=== PATIENT | female | born 1975 | race Caucasian/White ===

== ENCOUNTER → 2018-08-30 15:41 | Outpatient (CLI) | payer MEDICAID, SELFPAY | PROVIDERS: Referring Provider Otolaryngology; Visit Provider Otolaryngology | DX: J32.9 Chronic sinusitis, unspecified (principal) | CPT/HCPCS: 87070; 87077; 87186; 87205 ==

== ENCOUNTER → 2018-09-14 16:00 | Outpatient (CLI) | payer MEDICAID, SELFPAY | PROVIDERS: Referring Provider Otolaryngology; Visit Provider Otolaryngology | DX: J32.9 Chronic sinusitis, unspecified (principal) | CPT/HCPCS: 87070; 87205 ==

== ENCOUNTER → 2018-09-28 15:38 | Outpatient (CLI) | payer MEDICAID, SELFPAY | PROVIDERS: Referring Provider Otolaryngology; Visit Provider Otolaryngology | DX: J32.9 Chronic sinusitis, unspecified (principal) | CPT/HCPCS: 87070; 87205 ==

== ENCOUNTER → 2019-02-16 | Outpatient (CLI) | payer MEDICAID, SELFPAY ==
--- NOTE | 2019-02-16 09:46 | RAD_ITS ---
STUDY: X-RAY CHEST REASON FOR EXAM: Female, 43 years old. Preoperative evaluation. Diagnostic laryngoscopy. TECHNIQUE: PA and lateral views of the chest. COMPARISON: None. FINDINGS: Calcified granulomas more prominent in the left lower lobe. No focal infiltrate is seen. There is no demonstrated pleural abnormality. Normal size heart. Normal mediastinum and shazia. Normal visualized pulmonary arteries. Normal visualized aortic arch and descending thoracic aorta. Normal visualized thoracic spine. Normal visualized ribs, clavicles, and shoulders. There is no demonstrated abnormality of the visualized soft tissue structures of the upper abdomen. RAD/Chest PA and Lateral IMPRESSION: Scattered calcified granulomas. Electronically Signed: Fahad Medeiros, at 10:32 EDT , Service support ,
[2019-02-16 12:55] LABS: Anion Gap 1 (5-15); BUN 4 mg/dL (7-18); Calcium,Total 8.9 mg/dL (8.5-10.1); Chloride 109 mmol/L (98-107); EST Glomerular Filtration Rate 83 mL/min (>60); Est Glom Filt Rate - Afr Amer 101 mL/min (>60); Glucose 80 mg/dL (74-106); Potassium 3.8 mmol/L (3.5-5.1); Sodium Level 140 mmol/L (136-145)
== END | disposition home or self-care (01) ==
LOC: RAD 09:43
PROVIDERS: Referring Provider Otolaryngology; Visit Provider Otolaryngology
DX: Z01.818 Encounter for other preprocedural examination (principal)
CPT/HCPCS: 36415; 71046; 80048

== ENCOUNTER 2019-02-20 12:40 | Day surgery (SDC) | payer MEDICAID, SELFPAY ==
--- NOTE | 2019-02-20 12:49 | EKG12_ITS ---
Test Reason : PRE-OP Blood Pressure : / mmHG Vent. Rate : 091 BPM Atrial Rate : 091 BPM P-R Int : 136 ms QRS Dur : 076 ms QT Int : 354 ms P-R-T Axes : 062 041 067 degrees QTc Int : 435 ms Normal sinus rhythm Normal ECG No previous ECGs available Confirmed by BEE RUCKER, TAHIRA ([id number]), rewrite editor ZOE MURRAY ([id number]) on 02/26/2019 2:53:38 PM Referred By: Wisam Patel Confirmed By:TAHIRA GAMBOA MD
[2019-02-20 13:04] VITALS: BP 127/80; PULSE 99; RESP 16; TEMP 37.2; O2SAT 95; BMI 33.5
[2019-02-20 13:49] LABS: Hematocrit 38.9 % (37-47); Hemoglobin 13.2 g/dl (12.0-15.0); Mean Corp Hgb Conc 33.9 g/gl (32-36); Mean Corpuscular Hgb 33.8 pg (27.0-32.0); Mean Corpuscular Volume 99.7 fL (81-99); Platelet Count 300 K/mm3 (150-450); RBC Distribution Width SD 50.8 fl (35.1-43.9); Scan Indicated on CBC? Y/N NO; White Blood Count 6.4 K/mm3 (4.4-11.0)
--- NOTE | 2019-02-20 14:00 | MASS_PTH ---
PATIENT: SOTO BRYANT [place]: [facility] [place][id number] AGE/SX: 43/F ROOM: RE02/20/[address]: Dr. Ja Patel MD : 1975 BED: DIS: 02/20/2019 SPEC #: [id number] RECD: 02/20/19 15:08 STATUS: OMID JESSE #: [id number] YOGESH: 02/20/19 14:[address]: Ja Patel DEPT: SURGICAL PATHOLOGY RECD BY: Ric Hogan ENTERED: 02/21/19 09:05 SP TYPE: Mass OTHR DR: Out of Town Doctor Tissues: Vocal cord, NOS Procedures: PAS Fungus (control) Special Stain Group I Surgery Specimen Level III HEADER OPERATION: Diagnostic laryngoscopy with biopsy PRE-OP DIAGNOSIS: Hoarseness TISSUE SUBMITTED: Right vocal cord mass MICROSCOPIC DIAGNOSIS Right vocal cord mass, biopsy: Polypoid fragments of squamous mucosa with hyperkeratosis and parakeratosis, ulceration and associated granulation, acute and chronic inflammation and reactive epithelial atypia. Occasional fungal organisms consistent with Kasandra species. See comment. VERONICA:víctor 02/22/19 COMMENT PASF stain with matched control supports the above diagnosis. The fragments of squamous mucosa have a verrucoid appearance. Clinical correlation is suggested. MICROSCOPIC DESCRIPTION Slides are reviewed. GROSS DESCRIPTION Received in fixative is one container labeled with the patient's name and designated right vocal cord mass. The specimen consists of three irregular fragments of alaniz soft tissue that in aggregate measure 0.3 x 0.2 x 0.1 cm. The specimen is totally submitted in one cassette. / CE:víctor 02/21/19 TC:2 CPT: 91250, 68715
--- NOTE | 2019-02-20 14:12 | PCM.OPRPT ---
Problem List (1) Vocal cord mass Status: Chronic Report of Operation Date of Procedure: 02/20/19 Pre-Operative Diagnosis: right vocal cord mass Post-Operative Diagnosis: right vocal cord mass Surgery/Procedure Performed:: diagnostic laryngoscopy with biopsy and use of operative telescope Type of Anesthesia:: General Description of Procedure: on the day of the procedure, after appropriate informed consent was obtained, the patient was brought to the operating room and placed in supine position on the operating table. she was placed under general endotracheal anesthesia by the anesthesiologist using the glide scope. the endotracheal tube was secured, the eyes were taped. the table was rotated 90 degrees toward the surgeon. a tooth guard was placed. a brigido laryngoscope was inserted into the oral cavity with care not to damage the lips, teeth or gums. it was suspended to the rees stand. the zero degree endoscope was used to evaluate the larynx. there was a right mid-cord granular nodule concerning for squamous cell carcinoma. this was biopsied with a cupped biting forceps. it did not involve the underside of the cord or the anterior commissure. the left cord had some slight mucosal changes but no discrete masses. the remainder of the larynx was unremarkable. biopsy-site bleeding was stopped with afrin-soaked pledgets. hemostasis was observed. the table was rotated 90 degrees toward the anesthesiologist and the patient was subsequently extubated uneventfully. she was transferred to the pacu in stable condition.
--- NOTE | 2019-02-20 14:20 | DCINST_ITS ---
- Discharge Diagnoses Current Active Problems: Current Active and Chronic Problems Vocal cord mass (Chronic) You will use the following diet at home:: No restrictions Your food should be the consistency of: Regular Allergies/Adverse Reactions: Allergies No Known Allergies Allergy (Verified 02/16/19 12:32) Medications to take at Discharge Albuterol Aerosols [Ventolin Aerosols] 2.5 mg INHALATION Q2H PRN PRN 02/16/19 Albuterol Aerosols [Ventolin Aerosols] 2.5 mg INHALATION Q4HWA.RT 02/16/19 Clonazepam 1 mg PO TID 02/16/19 Dextroamphetamine/Amphetamine [Adderall Xr 25 mg Capsule] 25 mg PO DAILY 02/16/19 Doxepin HCl 150 mg PO QHS 02/16/19 Gabapentin [Neurontin] 600 mg PO 4X/DAY 02/16/19 Ropinirole HCl [Requip] 4 mg PO QHS 02/16/19 Sertraline HCl [Zoloft] 100 mg PO DAILY 02/16/19 Tiotropium [place] [Spiriva 18 MCG] 1 puff INHALATION DAILY 02/16/19 cycloBENZAPRine HCl [Flexeril] 10 mg PO BID 02/16/19 Acetaminophen/Codeine #3 [Tylenol#3] 1 tab PO Q6H PRN PRN #10 tab 02/20/19 The following prescriptions were given: Acetaminophen/Codeine #3 [Tylenol#3] 1 tab PO Q6H PRN PRN #10 tab PRN Reason: Pain Primary Care Physician: [facility] Doctor,Out of [Primary Care Provider] - Test Results: Test results from this visit will be discussed in further detail at your follow- up appointment, if applicable. Please Follow Up With: Wisam Patel MD When: 1 week
[2019-02-20 14:25] VITALS: BP 127/80; BP 135/72; PULSE 102; RESP 18; TEMP 36.7; O2SAT 92
[2019-02-20 14:30] VITALS: BP 127/80; BP 129/80; PULSE 98; RESP 16; O2SAT 92
[2019-02-20 14:45] VITALS: BP 124/83; BP 127/80; PULSE 91; RESP 18; O2SAT 93
[2019-02-20 14:56] VITALS: BP 126/82; BP 127/80; PULSE 92; RESP 18; TEMP 36.4; O2SAT 95
[2019-02-20 15:23] VITALS: BP 127/80; BP 133/89; PULSE 88; RESP 18; TEMP 36.6; O2SAT 95
== END 2019-02-20 15:28 | disposition home or self-care (01) ==
LOC: SDC 12:41 → AC 12:42
PROVIDERS: Anesthesiology; Referring Provider Otolaryngology; Visit Provider Otolaryngology
PROC: 0CJS8ZZ Inspection of Larynx, Via Natural or Artificial Opening Endoscopic (ICD-10-PCS; CPT 31575; principal; 2019-02-20 13:45)
DX: R49.0 Dysphonia (principal); J38.3 Other diseases of vocal cords; F43.10 Post-traumatic stress disorder, unspecified; F41.9 Anxiety disorder, unspecified; F60.3 Borderline personality disorder; Z79.899 Other long term (current) drug therapy; G47.30 Sleep apnea, unspecified; M79.7 Fibromyalgia; G25.81 Restless legs syndrome
CPT/HCPCS: 00320; 31536; 85027; 88304; 88305; 88312; 93005; J7120; J2405

== ENCOUNTER 2020-05-20 07:12 | Day surgery (SDC) | payer MEDICAID, SELFPAY ==
[2020-05-20] VITALS (7 sets, daily range): BP systolic 118–141; BP diastolic 72–92; PULSE 74–358; RESP 16; TEMP 36.2–37; O2SAT 92–100; BMI 32.2
--- NOTE | 2020-05-20 | LES_PTH ---
PATIENT: SOTO BRYANT LOC: [facility] – [place] U#:[id number] AGE/SX: 44/F ROOM: RE05/20/[address]: Dr. aJ aPtel MD : 1975 BED: DIS: 05/20/2020 SPEC #: [id number] RECD: 05/20/20 09:02 STATUS: OMID JESSE #: [id number] YOGESH: 05/20/20 00:[address]: Ja Patel DEPT: SURGICAL PATHOLOGY RECD BY: Felisa Muller Tissues: A - Skin of nose, NOS B - Skin of nose, NOS C - Skin of nose, NOS D - Skin of nose, NOS E - Skin of nose, NOS F - Skin of nose, NOS Procedures: Frozen Section (charge) Surgery Specimen Level IV HEADER OPERATION: Excision nasal lesion, frozen section PRE-OP DIAGNOSIS: Right nasal mass TISSUE SUBMITTED: A - Right nasal lesion, B - Right nasal lesion, 9-12 o'clock margin, C - Right nasal lesion, 6-9 o'clock margin, D - Right nasal lesion, 3-6 o'clock margin, E - Right nasal lesion, 12-3 o'clock margin, F - Right nasal lesion, deep margin FROZEN SECTION DIAGNOSIS A. Right nasal lesion, biopsy: Atypical epithelial lesion. Differential diagnosis includes basal cell carcinoma vs trichoepithelioma or trichofolliculoma. B. 9 to 12 o'clock margin, biopsy: Negative for carcinoma. C. 6 to 9 o'clock margin, biopsy: Negative for carcinoma. D. 3 to 6 o'clock margin, biopsy: Negative for carcinoma. E. 12 to 3 o'clock margin, biopsy: Negative for carcinoma. F. Deep margin, biopsy: Negative for carcinoma. ARYAN:víctor 05/20/20 MICROSCOPIC DIAGNOSIS A. Right nasal lesion, biopsy: Basal cell carcinoma, focally present at the deep margin of the specimen. B. Right nasal lesion, 9 to 12 o'clock margin, biopsy: Negative for carcinoma. Solar elastosis. C. Right nasal lesion, 6 to 9 o'clock margin, biopsy: Negative for carcinoma. Dermal chronic inflammation. D. Right nasal lesion, 3 to 6 o'clock margin, biopsy: Negative for carcinoma. Dermal chronic inflammation. Solar elastosis. E. Right nasal lesion, 12 to 3 o'clock margin, biopsy: Negative for carcinoma. Dermal chronic inflammation. Solar elastosis. F. Right nasal lesion, deep margin, biopsy: Negative for carcinoma. Mild chronic inflammation. ARYAN:víctor 05/21/20 COMMENT Case has been reviewed in consultation with Dr. Ellsworth who concurs with the above diagnosis. IDC:AM MICROSCOPIC DESCRIPTION Slides are reviewed. GROSS DESCRIPTION A - Received fresh for frozen section diagnosis labeled with the patient's name is a specimen designated right nasal lesion. The specimen consists of a round piece of alaniz-white skin measuring 1 x 1 x 0.3 cm. The specimen is inked, serially sectioned and submitted entirely in one cassette for frozen section diagnosis. B - Received fresh for frozen section diagnosis labeled with the patient's name is a specimen designated 9 to 12 o'clock margin. The specimen consists of two fragments of alaniz-white skin measuring in aggregate 0.3 x 0.1 x 0.1 cm. The entire specimen is submitted for frozen section diagnosis in one cassette. C - Received fresh for frozen section diagnosis labeled with the patient's name is a specimen designated 6 to 9 o'clock margin. The specimen consists of a piece of alaniz-white skin measuring 0.3 x 0.1 x 0.1 cm. The entire specimen is submitted for frozen section diagnosis in one cassette. D - Received fresh for frozen section diagnosis labeled with the patient's name is a specimen designated 3 to 6 o'clock margin. The specimen consists of a piece of alaniz-white skin measuring 0.2 x 0.1 x 0.1 cm. The entire specimen is submitted for frozen section diagnosis in one cassette. E - Received fresh for frozen section diagnosis labeled with the patient's name is a specimen designated 12 to 3 o'clock margin. The specimen consists of a piece of alaniz-white skin measuring 0.5 x 0.2 x 0.1 cm. The entire specimen is submitted for frozen section diagnosis in one cassette. F - Received fresh for frozen section diagnosis labeled with the patient's name is a specimen designated deep margin. The specimen consists of a piece of alaniz soft tissue measuring 0.3 x 0.1 x 0.1 cm. The entire specimen is submitted for frozen section diagnosis in one cassette. / ARYAN:víctor 05/20/20 TC: 0 CPT: 48374 x6, 08040 x6
--- NOTE | 2020-05-20 08:32 | DCINST_ITS ---
You will use the following diet at home:: No restrictions Discharge Activity: May not drive while taking narcotic pain medications. Call your doctor if your incision/area has: Increased Pain/ Swelling Additional Dressing/Incision Instructions:: mupirocin to all incisions three times daily. Allergies/Adverse Reactions: Allergies horse dander Allergy (Verified 05/20/20 07:33) Swelling grass Allergy (Uncoded 05/20/20 07:33) Swelling Medications to take at Discharge Albuterol Aerosols [Ventolin Aerosols] 2.5 mg INHALATION Q2H PRN PRN 02/16/19 Clonazepam 1 mg PO TID 02/16/19 Doxepin HCl 150 mg PO QHS 02/16/19 Gabapentin [Neurontin] 600 mg PO 4X/DAY 02/16/19 Ropinirole HCl [Requip] 4 mg PO QHS 02/16/19 Sertraline HCl [Zoloft] 100 mg PO QHS 02/16/19 Tiotropium [place] [Spiriva 18 MCG] 1 puff INHALATION DAILY 02/16/19 cycloBENZAPRine HCl [Flexeril] 10 mg PO BID 02/16/19 Albuterol Inhaler [Ventolin Hfa (SP)] 2 puff INHALATION Q6H PRN PRN 05/12/20 Bupropion HCl [Wellbutrin Xl] 150 mg PO DAILY 05/12/20 Ergocalciferol [Vitamin D] 50,000 unit PO QMONTH 05/12/20 Mv-Min/Iron/Folic/Calcium/Vitk [Women's Daily Formula Tablet] 1 ea PO DAILY 05/12/20 Primary Care Physician: MARY KATE SHARP [Other] Test Results: Test results from this visit will be discussed in further detail at your follow- up appointment, if applicable. Please Follow Up With: Wisam Patel MD When: next tuesday
[2020-05-20] MEDS: Mupirocin Ointment 22gm Tube 1 APPLIC (08:54)
[2020-05-20] MEDS: Lactated Ringers 1,000 ML 100 ML IV ×2 (10:00→11:26)
--- NOTE | 2020-05-20 11:35 | PCM.OPRPT ---
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 excisional biopsy nasal mass. 2. rotational sliding glabellar flap, 25 sq cm Type of Anesthesia:: General Description of Procedure: on the day of the procedure, after appropriate informed consent was obtained, the patient was brought to the operating room and placed in supine position on the operating table. she was placed under general endotracheal anesthesia by the anesthesiologist. tegaderm was placed over the eyes. the nose and glabella/forehead were injected with lidocaine/epinephrine. the face was prepped and draped. the circular lesion on the right lateral nasal sidewall of 1.2 cm was excised. 4mm margins were removed. additional 1mm margins were taken in 4 quadrants and deep. the path returned likely for basal cell carcinoma per the pathologist. the margins were all reported negative. the defect was 2.2 cm in diameter. incisions for a sliding glabellar flap were made including a superior ipsilateral limb into the forehead and an inferior limb on the contralateral side creating an upside down V. the skin of the nasal dorsum and forehead were widely undermined. the flap was rotated/advanced inferiorly. the entire defect was 5 x 5 cm leaving a 25 square cm reconstruction. the flap was sutured into place with 4-0 vicryl. an inferior dog ear was trimmed and revised, a triangle of tissue was excised on the nasal dorsum. the forehead defect was brought together in a linear fashion with 4-0 vicryl and 5-0 prolene. the remainder of the flap was closed with 5-0 prolene. the table was rotated 90 degrees toward the anesthesiologist; she was extubated uneventfully. she was transferred to the PACU in stable condition.
[2020-05-20] MEDS: HYDROcodone Bitartrate/Apap 5/325 Tablet PO (12:37)
== END 2020-05-20 13:26 | disposition home or self-care (01) ==
LOC: SDC 07:13 → AC 07:15
PROVIDERS: Anesthesiology; Referring Provider Otolaryngology; Visit Provider Otolaryngology
PROC: (CPT 14061; principal; 2020-05-20 08:30)
DX: C44.311 Basal cell carcinoma of skin of nose (principal); J43.9 Emphysema, unspecified; J45.909 Unspecified asthma, uncomplicated; M79.7 Fibromyalgia; F41.9 Anxiety disorder, unspecified; F60.3 Borderline personality disorder; F43.10 Post-traumatic stress disorder, unspecified; F17.200 Nicotine dependence, unspecified, uncomplicated; Z79.899 Other long term (current) drug therapy; Z20.828 Contact with and (suspected) exposure to other viral communicable diseases
CPT/HCPCS: 14061; 87635; 88305; 88331; 94799; J7120; J2405; U0003